=== PATIENT | male | born 1980 | race Hispanic/Latino ===

== ENCOUNTER 2017-10-27 00:02 | Emergency (ER) | payer SELFPAY ==
[2017-10-27] MEDS ORDERED: FLUORESCEIN SODIUM 0.6 MG/WRAP ONE (01:48)
[2017-10-27] MEDS ORDERED: TETRACAINE HCL 0.5% 2ML OPTH ONE (01:48)
--- NOTE | 2017-10-27 01:54 | EDPHYS ---
Physician Documentation [facility] Name: Darion Yanez Age: 37 yrs Sex: Male : 1980 Arrival Date: 10/27/2017 Time: 00:13 Bed 5 Private MD: ED Physician Talon Norwood HPI: 10/27 01:48 This 37 yrs old Male presents to ER via Ambulatory with complaints of Eye sean Problem. 01:48 The patient sustained an abrasion, to the left eye. Onset: The symptoms/episode sean began/occurred yesterday. Duration: the symptoms are continuous. Aggravated by blinking, Alleviated by nothing. Associated signs and symptoms: Pertinent positives: None. Patient does not utilize any form of vision correction. Severity of symptoms: At their worst the symptoms were moderate in the emergency department the symptoms are unchanged. The patient has not experienced similar symptoms in the past. Historical: - Allergies: 01:21 No Known Allergies; bp - Home Meds: 01:21 None [Active]; bp - PMHx: 01:21 None; bp - Immunization history:: Adult Immunizations up to date. - Social history:: Smoking status: Patient/guardian denies using tobacco. - Family history:: not pertinent. ROS: 01:48 Constitutional: Negative for fever, chills, and weight loss, ENT: Negative for injury, sean pain, and discharge, Neck: Negative for injury, pain, and swelling, Cardiovascular: Negative for chest pain, palpitations, and edema, Respiratory: Negative for shortness of breath, cough, wheezing, and pleuritic chest pain, Abdomen/GI: Negative for abdominal pain, nausea, vomiting, diarrhea, and constipation, Back: Negative for injury and pain, : Negative for injury, bleeding, discharge, and swelling, MS/Extremity: Negative for injury and deformity, Skin: Negative for injury, rash, and discoloration, Neuro: Negative for headache, weakness, numbness, tingling, and seizure, Psych: Negative for depression, anxiety, suicide ideation, homicidal ideation, and hallucinations, Allergy/Immunology: Negative for hives, rash, and allergies, Endocrine: Negative for neck swelling, polydipsia, polyuria, polyphagia, and marked weight changes. 01:48 Eyes: Positive for pain, redness, of the iris of left eye. Exam: 01:48 Constitutional: This is a well developed, well nourished patient who is awake, alert, sean and in no acute distress. Head/Face: Normocephalic, atraumatic. ENT: Nares patent. No nasal discharge, no septal abnormalities noted. Tympanic membranes are normal and external auditory canals are clear. Oropharynx with no redness, swelling, or masses, exudates, or evidence of obstruction, uvula midline. Mucous membranes moist. Neck: Trachea midline, no thyromegaly or masses palpated, and no cervical lymphadenopathy. Supple, full range of motion without nuchal rigidity, or vertebral point tenderness. No Meningismus. Chest/axilla: Normal chest wall appearance and motion. Nontender with no deformity. No lesions are appreciated. Cardiovascular: Regular rate and rhythm with a normal S1 and S2. No gallops, murmurs, or rubs. Normal PMI, no JVD. No pulse deficits. Respiratory: Lungs have equal breath sounds bilaterally, clear to auscultation and percussion. No rales, rhonchi or wheezes noted. No increased work of breathing, no retractions or nasal flaring. Abdomen/GI: Soft, non-tender, with normal bowel sounds. No distension or tympany. No guarding or rebound. No evidence of tenderness throughout. Back: No spinal tenderness. No costovertebral tenderness. Full range of motion. Male : Normal genitalia with no discharge or lesions. Skin: Warm, dry with normal turgor. Normal color with no rashes, no lesions, and no evidence of cellulitis. MS/ Extremity: Pulses equal, no cyanosis. Neurovascular intact. Full, normal range of motion. Neuro: Awake and alert, GCS 15, oriented to person, place, time, and situation. Cranial nerves II-XII grossly intact. Motor strength 5/5 in all extremities. Sensory grossly intact. Cerebellar exam normal. Normal gait. Psych: Awake, alert, with orientation to person, place and time. Behavior, mood, and affect are within normal limits. 01:48 Eyes: Periorbital structures: appear normal, no acute changes, Pupils: no acute changes, equal, round, and reactive to light and accomodation, Extraocular movements: intact throughout, Conjunctiva: injected, Corneas: abrasion, that is small, on the left, at 12 o'clock. Vital Signs: 01:20 BP 137 / 91; Pulse 84; Resp 16; Temp 98; Pulse Ox 98% on R/A; Weight 122.47 kg; bp 01:49 BP 155 / 92; Pulse 82; Resp 16; Pulse Ox 97% on R/A; mt MDM: 01:22 Patient medically screened. [facility] 01:48 Data reviewed: vital signs, nurses notes. [facility] 10/27 01:48 Order name: Eye Tray; Complete Time: 01:54 [facility] 10/27 02:04 Order name: Fluoresene Opth strip; Complete Time: 02:04 bb Administered Medications: 02:02 CANCELLED (Other Intervention Used): Garamycin Ointment 0.3 % 0.5 inches Ophthalmic bb once; Left Eye 02:04 Drug: Tetracaine Solution (0.5 %) 1 drops Route: Topical; Site: left eye; bb 02:05 Drug: Fluorescein Strip 1 strip Route: Ophthalmic; Site: left eye; bb 02:13 Drug: Suurnipl-Hsslckuiog-Cjnkrjjeh 0.5 inches {Note: given by md.} Route: Ophthalmic; bp Site: left eye; 02:23 Drug: [place] 10 mg-325 mg 1 tabs Route: PO; bp 02:23 Follow up: Response: Medication administered at discharge. bp 02:24 Drug: Tetanus-Diphtheria Toxoid Adult 0.5 ml {Store Mgr: [employer]. Exp: 02/11/2020. Lot #: [id number]. } Route: IM; Site: right deltoid; 02:24 Follow up: Response: Medication administered at discharge. Disposition: 10/27/17 01:53 Discharged to Home. Impression: Injury of conjunctiva and corneal abrasion without foreign body, Injury of conjunctiva and corneal abrasion without foreign body, left eye. - Condition is Stable. - Discharge Instructions: Corneal Abrasion, Corneal Abrasion, [id number]-[id number]. - Prescriptions for Tylenol- Codeine #3 300-30 mg Oral Tablet - take 2 tablet by ORAL route every 6 hours As needed; 30 tablet. Bacitracin 500 unit/gram Ophthalmic Ointment - instill 0.5 inch by OPHTHALMIC route every 6 hours; 3.5 tube. - Medication Reconciliation Form, Thank You Letter, Antibiotic Education, Prescription Opioid Use form. - Follow up: Private Physician; When: 1 - 2 days; Reason: Recheck today's complaints, Continuance of care, Re-evaluation by your physician. Follow up: Ed Tong MD; When: Today; Reason: Recheck today's complaints, Re-evaluation by your physician. - Problem is new. - Symptoms have improved. Signatures: Talon Norwood MD MD cha Ballard, Brenda, RN RN Eliu South RN RN bp Corrections: (The following items were deleted from the chart) 02:02 01:48 Garamycin Ointment 0.3 % 0.5 inches Ophthalmic once; Left Eye ordered. sean pascual 02:02 02:02 Garamycin Ointment 0.3 % 0.5 inches Ophthalmic once; Left Eye ordered. ankur pascual
--- NOTE | 2017-10-27 01:54 | ER ---
Nurse's Notes [facility] Name: Darion Yanez Age: 37 yrs Sex: Male : 1980 Arrival Date: 10/27/2017 Time: 00:13 Bed 5 Private MD: Diagnosis: Injury of conjunctiva and corneal abrasion without foreign body;Injury of conjunctiva and corneal abrasion without foreign body, left eye Presentation: 10/27 01:20 Presenting complaint: Patient states: (FROM THE CITIZ[place] OF [place]) I WAS WORKING AND SOMETHING bp FLEW INTO MY EYE. Transition of care: patient was not received from another setting of care. Onset of symptoms was October 26, 2017 at 19:00. Initial Sepsis Screen: Does the patient meet any 2 criteria? No. Patient's initial sepsis screen is negative. Does the patient have a suspected source of infection? No. Patient's initial sepsis screen is negative. Care prior to arrival: None. 01:20 Method Of Arrival: Ambulatory bp 01:20 Acuity: FRANDY 4 bp Triage Assessment: 01:21 General: Appears in no apparent distress. comfortable, obese, Behavior is calm, bp cooperative, appropriate for age. Pain: Complains of pain in left eye. EENT: Eyes are tearing on outer aspect of conjuctiva of left eye, iris of left eye and inner aspect of conjunctiva of left eye Sclera/Cornea are reddened in outer aspect of conjuctiva of left eye, iris of left eye and inner aspect of conjunctiva of left eye. Neuro: Level of Consciousness is awake, alert, obeys commands, Oriented to person, place, time, situation, Appropriate for age. Cardiovascular: No deficits noted. Respiratory: No deficits noted. GI: No deficits noted. : No signs and/or symptoms were reported regarding the genitourinary system. Derm: No deficits noted. Musculoskeletal: Circulation, motion, and sensation intact. Range of motion: intact in all extremities. Historical: - Allergies: 01:21 No Known Allergies; bp - Home Meds: 01:21 None [Active]; bp - PMHx: 01:21 None; bp - Immunization history:: Adult Immunizations up to date. - Social history:: Smoking status: Patient/guardian denies using tobacco. - Family history:: not pertinent. Screenin:30 Abuse screen: Denies threats or abuse. Denies injuries from another. Nutritional bp screening: No deficits noted. Tuberculosis screening: No symptoms or risk factors identified. Fall Risk None identified. Assessment: 01:30 General: Appears in no apparent distress. comfortable, obese, Behavior is calm, bp cooperative, appropriate for age. Pain: Complains of pain in left eye. Neuro: Level of Consciousness is awake, alert, obeys commands, Oriented to person, place, time, situation, Appropriate for age. Cardiovascular: No deficits noted. Respiratory: No deficits noted. GI: No deficits noted. : No signs and/or symptoms were reported regarding the genitourinary system. EENT: Sclera/Cornea are reddened in outer aspect of conjuctiva of left eye, iris of left eye and inner aspect of conjunctiva of left eye. Derm: No deficits noted. Musculoskeletal: Circulation, motion, and sensation intact. Range of motion: intact in all extremities. Vital Signs: 01:20 BP 137 / 91; Pulse 84; Resp 16; Temp 98; Pulse Ox 98% on R/A; Weight 122.47 kg; bp 01:49 BP 155 / 92; Pulse 82; Resp 16; Pulse Ox 97% on R/A; mt ED Course: 00:13 Patient arrived in ED. es 01:20 Eliu Rollins, LISANDRO is Primary Nurse. bp 01:21 Triage completed. bp 01:22 Talon Norwood MD is Attending Physician. sean 01:23 Arm band placed on. bp 01:30 Patient has correct armband on for positive identification. Bed in low position. Call bp light in reach. Side rails up X2. Adult w/ patient. 01:30 Assist provider with eye exam of left eye. using fluorescein stain, Performed by Talon Norwood MD Patient tolerated well. Patient did not have IV access during this emergency room visit. 01:52 Ed Tong MD is Referral Physician. sean Administered Medications: 02:02 CANCELLED (Other Intervention Used): Garamycin Ointment 0.3 % 0.5 inches Ophthalmic bb once; Left Eye 02:04 Drug: Tetracaine Solution (0.5 %) 1 drops Route: Topical; Site: left eye; bb 02:05 Drug: Fluorescein Strip 1 strip Route: Ophthalmic; Site: left eye; bb 02:13 Drug: Mrnzwluf-Nrejvckkbk-Jjdwlktzz 0.5 inches {Note: given by .} Route: Ophthalmic; bp Site: left eye; 02:23 Drug: [place] 10 mg-325 mg 1 tabs Route: PO; bp 02:23 Follow up: Response: Medication administered at discharge. bp 02:24 Drug: Tetanus-Diphtheria Toxoid Adult 0.5 ml {Supervisor Rework: [email or web address] Exp: bp 02/11/2020. Lot #: [id number]. } Route: IM; Site: right deltoid; 02:24 Follow up: Response: Medication administered at discharge. bp Outcome: 01:53 Discharge ordered by . sean 02:27 Discharged to home ambulatory, with family. bp 02:27 Condition: stable 02:27 Discharge instructions given to patient, Instructed on discharge instructions, follow up and referral plans. medication usage, Demonstrated understanding of instructions, follow-up care, medications, Prescriptions given X 2. 02:28 Patient left the ED. bp Signatures: Talon Norwood MD MD cha Salyer, Edna es Ballard, Brenda, LISANDRO RN Cathy Corona mt, Brian, RN RN bp Corrections: (The following items were deleted from the chart) 01:23 01:20 BP 137 / 91; Pulse 84bpm; Resp 16bpm; Pulse Ox 98% RA; vt bp
[2017-10-27] MEDS ORDERED: NEO/BAC/POLY/HC OPTH OINT ONE (01:58)
[2017-10-27] MEDS ORDERED: HYDROCODONE/APAP 10/325 TAB ONE (02:15)
[2017-10-27] MEDS ORDERED: TETANUS & DIPHTHERIA TOX,ADULT 0.5 ML VIAL ONE (02:16)
== END 2017-10-27 02:28 | disposition home or self-care (01) ==
LOC: ER 00:02
DX: S05.02XA Injury of conjunctiva and corneal abrasion without foreign body, left eye, initial encounter (principal)
CPT/HCPCS: 90714; 99283